=== PATIENT | male | born 1960 | race Caucasian/White ===

== ENCOUNTER 2020-05-19 11:09 | Emergency (ER) | payer OTHER, BC ==
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
[2020-05-19 13:55] LABS: Absolute Lymphocytes (CBC) 11.6 K/uL (0.7-4.9); Basophils % 0.4 % (0-1.3); Hematocrit 45.6 % (39.6-49.0); Lymphocytes % 52.6 % (15.3-44.8); MPV 9.5 fL (7.6-11.3); RBC Red Blood Cell Count 4.62 M/uL (4.33-5.43)
[2020-05-19 14:08] LABS: Potassium 3.8 mmol/L (3.5-5.1)
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
[2020-05-19 15:31] VITALS: BP 138/76; TEMP 97.6; O2SAT 98
[2020-05-19 21:50] LABS: Blood Morphology Comment NOT SEEN (NOT SEEN); Platelet Estimate ADEQ
== END 2020-05-19 14:43 | disposition home or self-care (01) ==
LOC: ER 11:09
DX: M54.5 Low back pain (principal); M62.830 Muscle spasm of back; V49.88XA Car occupant (driver) (passenger) injured in other specified transport accidents, initial encounter; Y93.89 Activity, other specified; Y92.410 Unspecified street and highway as the place of occurrence of the external cause; Y99.0 Civilian activity done for income or pay; F17.210 Nicotine dependence, cigarettes, uncomplicated
CPT/HCPCS: 85025; 80048; 36415; 82565; 74177; 99283; Q9967

== ENCOUNTER 2023-04-10 09:55 | Day surgery (SDC) | payer OTHER ==
[2023-04-10 10:48] LABS: Potassium 4.4 mEq/L (3.5-5.1)
[2023-04-10] MEDS ORDERED: CEFAZOLIN SODIUM 2 GM/VIAL ONE (11:04)
[2023-04-10] MEDS ORDERED: Ringers Lactate 1,000 ML IV ONE (11:04)
[2023-04-10] MEDS ORDERED: LIDOCAINE HCL/EPINEPHRINE 20 ML MDV ONE (14:09)
[2023-04-10] MEDS ORDERED: MIDAZOLAM HCL 2 MG/2 ML INJ ONE ×2 (14:09→14:31)
[2023-04-10] MEDS ORDERED: FENTANYL CITR 100 MCG/2 ML ONE (14:09)
[2023-04-10] MEDS ORDERED: propofoL 200 MG/20 ML VIAL IV ONE (14:09)
--- NOTE | 2023-04-10 15:26 | P.OP ---
Preoperative diagnosis: Skin Cancer of RIGHT Bicept, LEFT Back Postoperative diagnosis: Skin Cancer of RIGHT Bicept, LEFT Back Primary procedure: Wide local excision of Skin Cancer of RIGHT Bicept, LEFT Back Anesthesia: GETA + Local Estimated blood loss: <10cc Specimen: skin ellipse x 2 6cm x 4cm into adipose Findings: Skin Cancer of RIGHT Bicept, LEFT Back 6cm x 4cm into adipose Complications: None Transferred to: Recovery Room Condition: Good
[2023-04-10 15:47] VITALS: TEMP 97.8
[2023-04-10 16:29] VITALS: BP 120/64; O2SAT 99
--- NOTE | 2023-04-10 16:56 | EKG ---
Test Date: 2023-04-10 Test Time: 10:13:21 [employer]i [employer] Web Developer: CRYSTAL MEASUREMENT RESULTS: Intervals: Rate: 63 RI: 182 QRSD: 74 QT: 416 QTc: 425 [place]: P: 67 RI: 182 QRS: 12 T: 43 INTERPRETIVE STATEMENTS: Normal sinus rhythm Low voltage QRS Cannot rule out Anterior infarct, age undetermined Abnormal ECG Compared to ECG 12/08/2018 12:55:17 Low QRS voltage now present Myocardial infarct finding now present Electronically Signed On 04-10-23 16:55:41 CDT by Arun Hollingsworth
--- NOTE | 2023-04-11 00:11 | OP ---
Date of Procedure: 04/10/2023 Surgeon: Kishan Glover MD, Preoperative Diagnosis: Skin cancer of the right biceps and left back. Postoperative Diagnosis: Skin cancer of the right biceps and left back. Procedure Performed: Wide local excision of skin cancer of the right biceps and left flank. Anesthesia: General endotracheal plus local with 1% lidocaine with epinephrine. Estimated Blood Loss: . Specimens: Two skin ellipse was approximately 6 cm x 4 cm and adipose tissue. Findings: Skin cancer of the right biceps, left flank, and back area greater than 1 cm in size, but less than 2 cm. It is approximately 1.1 cm each. Complications: None. The patient was transferred to recovery room in good condition. Procedure In Detail: After informed consent was obtained, the patient was brought to the operating r oom, prepped and draped in the usual sterile fashion after adequate anesthesia was achieved. The are a of the right biceps today was marked with a marking pen circumferentially around a 1.1 cm area of s kin cancer, which was shave biopsy confirmed skin cancer. I then took a 1.1 cm ellipse circumferenti ally around each side of this area making a 6 cm x 4 cm defect to elongate the incision circumferenti ally around the area down through subcutaneous tissue and adipose tissue. A short stitch and long la teral marking stitch was placed and sent off for pathologic examination. I then reapproximated the m ajority of the skin in the area. There was slight increase in tension as the middle portion of the r ight biceps and as such, the area was irrigated and packed with damp to dry sterile dressing and a st erile dressing applied. I then turned my attention to the left back incision and similarly was dolores barajas, anesthetized appropriately with 1% lidocaine with epinephrine. I then used the blade down through a 6 cm x 4 cm ellipse of skin around a 1.1 cm skin cancer, which was biopsy-proven as well. I then took this down using an electrocautery down to the adipose tissue and marking stitches were placed, s hort superior and long lateral once again and that was sent off for pathologic examination. At this point, the area was irrigated copiously. Hemostasis was achieved using electrocautery and the skin w as loosely reapproximated as well defect remained in the middle that would have been undue tension. As such, the area was packed with damp to dry dressings and a sterile dressing placed over top. The patient tolerated the procedure well without evidence of complication and transferred to P ACU in good condition. All counts were correct at the end of the case. TOYA/MARILEE Voice ID: [id number] Report ID: [id number]
== END 2023-04-10 16:18 | disposition home or self-care (01) ==
LOC: OR 09:55
PROVIDERS: ATTEND Surgery
PROC: 0JB70ZZ Excision of Back Subcutaneous Tissue and Fascia, Open Approach (ICD-10-PCS; 2023-04-10)
PROC: 0JBD0ZZ Excision of Right Upper Arm Subcutaneous Tissue and Fascia, Open Approach (ICD-10-PCS; principal; 2023-04-10 14:15)
DX: C44.519 Basal cell carcinoma of skin of other part of trunk (principal); C44.612 Basal cell carcinoma of skin of right upper limb, including shoulder; I10 Essential (primary) hypertension; E78.00 Pure hypercholesterolemia, unspecified; F17.210 Nicotine dependence, cigarettes, uncomplicated
CPT/HCPCS: 11602 ×2; 93005 ×2; 80048; 36415; 82565; 88305; J2704; J2250 ×2; J3010; J7120

== ENCOUNTER → 2023-11-10 | Day surgery (SDC) | payer OTHER ==
[2023-11-07 11:56] LABS: PT Prothrombin Time 10.3 SECONDS (9.5-12.5); PTT, Activated Partial Thromb 37.5 SECONDS (24.3-36.9); Protime INR 0.93
[~2023-11-10] MED LIST: LIDOCAINE 1% MPF 5 ML VIAL ONE; propofoL 200 MG/20 ML VIAL IV ONE
[2023-11-10] MEDS: Ringers Lactate 1,000 ML IV ONE (11:45)
--- NOTE | 2023-11-10 14:48 | EKG ---
Test Date: 2023-11-07 Test Time: 10:51:05 Pressure Supervisor: CRYSTAL MEASUREMENT RESULTS: Intervals: Rate: 59 OR: 184 QRSD: 76 QT: 434 QTc: 429 [place]: P: 58 OR: 184 QRS: -2 T: 33 INTERPRETIVE STATEMENTS: Sinus bradycardia Otherwise normal ECG Compared to ECG 04/10/2023 10:13:21 Sinus rhythm no longer present Myocardial infarct finding no longer present Electronically Signed On 11-10-23 14:40:24 CDT by Arun Hollingsworth
[2023-11-10 14:49] VITALS: BP 136/66; TEMP 97.1; O2SAT 99
== END ==
LOC: OR 11:11
PROVIDERS: ATTEND Surgery
PROC: 0DB98ZX Excision of Duodenum, Via Natural or Artificial Opening Endoscopic, Diagnostic (ICD-10-PCS; 2023-11-10)
PROC: 0DB78ZX Excision of Stomach, Pylorus, Via Natural or Artificial Opening Endoscopic, Diagnostic (ICD-10-PCS; 2023-11-10)
PROC: 0DB68ZX Excision of Stomach, Via Natural or Artificial Opening Endoscopic, Diagnostic (ICD-10-PCS; 2023-11-10)
PROC: 0DB48ZX Excision of Esophagogastric Junction, Via Natural or Artificial Opening Endoscopic, Diagnostic (ICD-10-PCS; 2023-11-10)
PROC: 0DBK8ZX Excision of Ascending Colon, Via Natural or Artificial Opening Endoscopic, Diagnostic (ICD-10-PCS; principal; 2023-11-10 12:45)
PROC: 0DBP8ZX Excision of Rectum, Via Natural or Artificial Opening Endoscopic, Diagnostic (ICD-10-PCS; 2023-11-10 12:45)
DX: R10.84 Generalized abdominal pain (principal); B96.81 Helicobacter pylori [H. pylori] as the cause of diseases classified elsewhere; R63.4 Abnormal weight loss; R19.7 Diarrhea, unspecified; R15.9 Full incontinence of feces; R11.2 Nausea with vomiting, unspecified; I10 Essential (primary) hypertension; E78.00 Pure hypercholesterolemia, unspecified; K29.50 Unspecified chronic gastritis without bleeding; K21.00 Gastro-esophageal reflux disease with esophagitis, without bleeding; D12.2 Benign neoplasm of ascending colon; K63.5 Polyp of colon; K22.70 Barrett's esophagus without dysplasia; K29.81 Duodenitis with bleeding; K64.8 Other hemorrhoids; K57.30 Diverticulosis of large intestine without perforation or abscess without bleeding; N42.9 Disorder of prostate, unspecified
CPT/HCPCS: 45380; 43239; 93005; 36415; 88312; 85610; 88305; 85730; J2704; J2001; J7120

== ENCOUNTER 2024-09-02 10:44 | Day surgery (SDC) | payer OTHER ==
[2024-09-02] MEDS: Ringers Lactate 1,000 ML IV ONE (11:25)
[2024-09-02] MEDS ORDERED: propofoL 200 MG/20 ML VIAL IV ONE (11:59)
[2024-09-02] MEDS ORDERED: ONDANSETRON 4 MG/2 ML VIAL ONE (11:59)
[2024-09-02] MEDS ORDERED: LIDOCAINE 2% MPF 5 ML VIAL ONE (11:59)
[2024-09-02] MEDS ORDERED: ROCURONIUM 50 MG/5 ML VIAL IV ONE (12:00)
[2024-09-02] MEDS ORDERED: FENTANYL CITR 100 MCG/2 ML ONE (12:00)
[2024-09-02] MEDS ORDERED: HYDROMORPHONE HCL 1 MG/ML INJ ONE (12:39)
[2024-09-02] MEDS ORDERED: dexAMETHasone 10 MG/ML VIAL ONE (13:12)
[2024-09-02] MEDS: CEFAZOLIN SODIUM 2 GM/VIAL ONE (13:18)
[2024-09-02] MEDS ORDERED: EPHEDRINE SULF 50 MG/ML VIAL ONE (13:28)
[2024-09-02] MEDS ORDERED: GLYCOPYRROLATE 0.2 MG/ML SYR ONE ×2 (13:31→14:27)
[2024-09-02] MEDS: LIDOCAINE HCL/EPINEPHRINE 20 ML MDV ONE (13:38)
[2024-09-02] MEDS ORDERED: NEOSTIGMINE 1 MG/ML -10 ML VIAL ONE (14:27)
[2024-09-02] MEDS ORDERED: KETOROLAC 30 MG/ML INJ ONE (14:54)
--- NOTE | 2024-09-02 14:55 | P.OP ---
Preoperative diagnosis: LEFT inguinal hernia, LEFT plantar wart, RIGHT arm/forearm skin cancer Postoperative diagnosis: LEFT inguinal hernia, LEFT plantar wart, RIGHT arm/forearm skin cancer Primary procedure: Open LEFT inguinal hernia repair with mesh Secondary procedure: Wide excision of LEFT plantar wart, RIGHT arm/forearm skin cancer Anesthesia: GETA + Local Estimated blood loss: <5cc Specimen: cord lipoma, LEFT plantar wart, RIGHT arm/forearm skin cancer Findings: 3.5cm x 3cm forearm skin lesion, 3cm x 2.5cm upper arm skin lesion Complications: None Implants: [employer]360 Medium Perfix Plug and Patch Repair system Transferred to: Recovery Room Condition: Good
[2024-09-02 16:23] VITALS: BP 137/64; TEMP 97.4; O2SAT 96
[2024-09-02] MEDS: HYDROCODONE/APAP 7.5/325 MG TAB ONE (17:08)
--- NOTE | 2024-09-03 01:27 | OP ---
Date of Procedure: 09/02/2024 Surgeon: Kishan Glover MD, Preoperative Diagnoses: 1. Left inguinal hernia. 2. Left foot plantar wart. 3. Right forearm skin lesion. 4. Right upper arm skin cancer/skin lesion. Postoperative Diagnoses: 1. Left inguinal hernia. 2. Left foot plantar wart. 3. Right forearm skin lesion. 4. Right upper arm skin cancer/skin lesion. Procedures Performed: 1. Open left inguinal hernia repair with mesh. 2. Wide local excision of left plantar wart. 3. Wide local excision of right forearm skin lesion/skin cancer. 4. Wide local excision of right upper arm skin lesion/skin cancer. Anesthesia: General endotracheal plus local, 1% lidocaine with epinephrine. Estimated Blood Loss: Less than 5 cc. Specimens: 1. Cord lipoma. 2. Left plantar wart. 3. Right forearm skin lesion. 4. Right upper arm skin lesion. Findings: 1. Approximately 3.5 cm x 3 cm forearm skin lesion. 2. 3 cm x 2.5 cm upper arm skin lesion. 3. Left inguinal hernia. Complications: None. Implants: Bard Medium PerFix Plug and Patch hernia repair system. Disposition: The patient was transferred to recovery room in good condition. Procedure In Detail: After informed was obtained, the patient was brought to the operating room, pre pped in usual sterile fashion. After adequate anesthesia was achieved, I began by making a left ingu inal incision down to subcutaneous tissues after marking the anatomic landmarks. I dissected down th rough [place] fat and Pretty fascia to expose the external oblique aponeurosis. It was found to be qu ite thin and alveolar. At this point, I incised this using a 15 blade and opened in its entirety usi ng Metzenbaum scissors. I then dissected and encircled the spermatic cord and structures. There was an inguinal hernia appreciated at the medial aspect of the cord. This was dissected free of the spe rmatic cord and structures, and placed back in the preperitoneal position. The cord lipoma was remov ed accordingly, sent off for pathologic examination. I then proceeded to palpate the preperitoneal s pace to allow for appropriate positioning of a Bard Medium PerFix plug hernia repair system. I then placed the Bard medium plug into the preperitoneal position and secured it circumferentially around u sing 2-0 PDS sutures without incident or complication. After the mesh was secured at this point, I t hen placed the patch after sizing appropriately at the pubic tubercle, the medial aspect on the under surface of the inguinal ligament and the internal oblique aponeurosis circumferentially ran using int errupted 2-0 PDS sutures. Ultimately reconstituted the deep inguinal ring with the same said 2-0 PDS suture. At this point, I irrigated the area copiously, dried the area out, and then closed the exte rnal oblique aponeurosis using a running 3-0 Vicryl suture with good approximation of the tissues; ho wever, it was thin and alveolar still. At this point, I proceeded to close the deep dermal plane usi ng interrupted 3-0 Vicryl sutures and the skin was closed with a 4-0 Monocryl in a running fashion. Dermabond was placed over top. The patient tolerated the procedure well without incident or complica tion. I then turned my attention to the left plantar wart. At this point, I began by taking down th e plantar wart using a flexible [place] blade and ultimately finding a nidus slightly deeper to this ar ea, and I used the 15C blade ultimately to circumferentially dissect out this area, which was approxi mately 0.25 cm. I sent this off for pathologic examination. I irrigated the area copiously, achieve d hemostasis with minimal electrocautery, closed it with 2 interrupted 3-0 nylon sutures and a steril e dressing was placed over top, and then was wrapped with Kerlix and Dieudonne bandage. I then turned my a ttention to 2 right forearm skin lesions, one had biopsy-proven skin cancer in the past and the secon d the patient states had a history of skin cancer before in the past as well. As such, I demarcated these areas with the margin of good tissue circumferentially around this and dissected down after genia ropriately anesthetizing the skin with 1% lidocaine, down to the subcutaneous tissues and made ellipt ical incisions approximately 3.5 cm x 3 cm. At the subcutaneous tissues, placed marking sutures for orientation and ultimately removed it down to the adipose tissue, sent it off for pathologic examinat ion and hemostasis was achieved with minimal electrocautery. I then closed the distal forearm lesion partially with 3-0 nylon sutures and packed the open portion in the center with Vashe-soaked gauze, Kerlix and Dieudonne bandage were applied. I then turned my attention to the upper arm lesion, similarly d issected this down circumferentially after appropriately anesthetizing the skin using a 15 blade down to the subcutaneous tissue for approximately 3 cm x 2.5 cm in the adipose tissue. Orientation stitc hes were placed once again, and it was sent off for pathologic examination after being ligated in the adipose plane. At this point, similarly, the area was copiously irrigated and hemostasis was achiev ed with minimal electrocautery. The area was copiously irrigated once again and then the wound was c losed in its entirety using interrupted 3-0 nylon sutures and sterile dressing placed over top. The patient tolerated procedure and anesthesia without incident or complication, and transferred to PACU in good condition. All counts were correct at the end of the case. TOYA/MARILEE Voice ID: [id number] Report ID: [id number]
== END 2024-09-02 17:20 | disposition home or self-care (01) ==
LOC: OR 10:44
PROVIDERS: ATTEND Surgery
PROC: 0JBG0ZZ Excision of Right Lower Arm Subcutaneous Tissue and Fascia, Open Approach (ICD-10-PCS; 2024-09-02)
PROC: 0JBD0ZZ Excision of Right Upper Arm Subcutaneous Tissue and Fascia, Open Approach (ICD-10-PCS; 2024-09-02)
PROC: 0YU50JZ Supplement Right Inguinal Region with Synthetic Substitute, Open Approach (ICD-10-PCS; principal; 2024-09-02 12:45)
PROC: 0HBNXZZ Excision of Left Foot Skin, External Approach (ICD-10-PCS; 2024-09-02 12:45)
DX: K40.90 Unilateral inguinal hernia, without obstruction or gangrene, not specified as recurrent (principal); C44.612 Basal cell carcinoma of skin of right upper limb, including shoulder; B07.0 Plantar wart; L57.8 Other skin changes due to chronic exposure to nonionizing radiation; I10 Essential (primary) hypertension; I25.10 Atherosclerotic heart disease of native coronary artery without angina pectoris; E78.5 Hyperlipidemia, unspecified; F17.210 Nicotine dependence, cigarettes, uncomplicated
CPT/HCPCS: 88302; 88305 ×2; 49505; 11422; 11603; 11404; J2704; J2710; J2003; J3010; J1100; J1171; J2405; J7120; 88304